=== PATIENT | male | born 1990 ===

== ENCOUNTER 2017-12-16 04:58 | Emergency (ER) | payer MEDICAID ==
[2017-12-16 05:01] VITALS: RESP 18
[2017-12-16 05:08] VITALS: BMI 25.1
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
[2017-12-16 05:48] LABS: ARTERIAL BLOOD GAS HCO3 25.9 mmol/L (21-28); ARTERIAL BLOOD GAS HEMOGLOBIN 13.3 g/dL (11.7-17.4); ARTERIAL BLOOD GAS O2 CAPACITY 18.8 mL/dl (16-24); ARTERIAL BLOOD GAS O2 CONTENT 18.8 ML/dl (15-23); ARTERIAL BLOOD GAS O2 SAT 100.2 % (95-98); ARTERIAL BLOOD GAS PCO2 39 mm/Hg (35-45); ARTERIAL BLOOD GAS PH 7.43 (7.35-7.45); ARTERIAL BLOOD GAS TCO2 27.1 mmol.L (22-28)
[2017-12-16 06:49] VITALS: BP 136/75; PULSE 73; TEMP 97.8; O2SAT 100
== END 2017-12-16 06:47 | disposition home or self-care (01) ==
LOC: ED 04:58
DX: J70.5 Respiratory conditions due to smoke inhalation (principal)